=== PATIENT | male | born 2005 | race Caucasian/White ===

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

== ENCOUNTER 2024-07-09 17:04 | Emergency (ER) | payer OTHER, SELFPAY ==
--- OUTSIDE RECORDS SUMMARY | 2024-07-09 17:06 | XMS_ITS | Clinical Summary ---
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 Gender Identity Not on file Sexual Orientation Not on file Obstetrics History Last Filed Vital Signs Vital Sign Reading Time Taken Comments Blood Pressure 120/82 01/08/2024 3:43 PM DIRECTOR OF AGRICULTURE Pulse 90 01/08/2024 3:43 PM DIRECTOR OF AGRICULTURE Temperature 36.8 C (98.3 F) 01/08/2024 3:43 PM DIRECTOR OF AGRICULTURE Respiratory Rate 20 01/08/2024 3:43 PM DIRECTOR OF AGRICULTURE Oxygen Saturation 99% 01/08/2024 3:43 PM DIRECTOR OF AGRICULTURE Inhaled Oxygen Concentration - - Weight 103.9 kg (229 lb) 01/08/2024 3:43 PM DIRECTOR OF AGRICULTURE Height - - Body Mass Index - - Plan of Treatment Health Maintenance Due Date Last Done Comments Depression Screening 2004 Hepatitis C Screening 2004 DTaP/Tdap/Td Vaccine (1 - Tdap) 2015 Varicella Vaccines (1 of 2 - 13+ 2-dose series) 2017 HPV Vaccines (1 - Male 3-dos e series) 2019 Meningococcal B Vaccine (1 o f 2 - Standard) 2020 Hepatitis B Screening 2022 Regular Well Visit/Exam 18-64 2022 Influenza Vaccine (#1) 2023 Meningococcal Vaccine Aged Out No claduine margarita eligible based on patient's age to complete this topic Pneumococcal vaccine <65 Aged Out No longer eligible based on patient's age to complete this topic Insurance HAROON Hassan [id number] [facility] CHOICE PLUS HAROON Hassan [id number] Care Teams Sea Shell Gatherer Relationship Specialty Start Date End Date Unknown, Notinfile PCP - General 01/08/24
--- OUTSIDE RECORDS SUMMARY | 2024-07-09 17:06 | XMS_ITS | Continuity of Care Document ---
Author Organization [facility] Address [address] [place] [address] [address] [place] [address] Phone Care Team Providers Care Opinion Polls Survey Worker Name Role Phone Denton OD, Tommy Unavailable Unavailable Procedures Procedure Date Eye Exam & Treatment Refraction Advance Directives Directive Yes / No Effective Date File Name No Information Encounters Encounter Description Practice Location Reason(s) For Visit Diagnoses Date Provider Providers Copied on Encounter [facility], [address], [place], [place], [id number], [place] tel:[phone] [facility] [place] No Information [phone] Denton OD Tommy. [address] , [address], [place], [address], [place]. tel:[phone] Family History Family Member Type Diagnosis Age At Onset No Information Payers Payer name Insurance type Covered constitution party ID Authoriza tion(s) Medicaid [facility] [id number] Social History Type Description Quantity Date Captured Comments Sex Male Smoking Status No Information Chief Complaint And Reason For Visit No Information Reason For Referral Reason For Referral No Information History Of Present Illness Encounter Date Complaint History Of Prese nt Illness No Information Functional Status Date Functional Assessmen t No Information Instructions Date Instruction Additional Infor mation No Information Assessments Type Assessment Date No Information Patient Care Teams Name Effective Dates (start - stop) Status Members No Information
--- OUTSIDE RECORDS SUMMARY | 2024-07-09 17:06 | XMS_ITS | Referral Summary ---
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 Gender Identity Not on file Sexual Orientation Not on file Last Filed Vital Signs Vital Sign Reading Time Taken Comments Blood Pressure 120/82 01/08/2024 3:43 PM VEHICLE UPHOLSTERER Pulse 90 01/08/2024 3:43 PM VEHICLE UPHOLSTERER Temperature 36.8 C (98.3 F) 01/08/2024 3:43 PM VEHICLE UPHOLSTERER Respiratory Rate 20 01/08/2024 3:43 PM VEHICLE UPHOLSTERER Oxygen Saturation 99% 01/08/2024 3:43 PM VEHICLE UPHOLSTERER Inhaled Oxygen Concentration - - Weight 103.9 kg (229 lb) 01/08/2024 3:43 PM VEHICLE UPHOLSTERER Height - - Body Mass Index - - Plan of Treatment [place] [id number] [facility] CHOICE PLUS Care Teams Stop Attacher Relationship Specialty Start Date End Date Unknown, Notinfile PCP - General 01/08/24
[2024-07-09 17:15] VITALS: BP 161/86; PULSE 96; RESP 16; TEMP 37.3; O2SAT 98
--- NOTE | 2024-07-09 18:36 | ED_ITS ---
HPI - Epistaxis General Chief complaint: Epistaxis Stated complaint: nosebleed x 20 mins Time Seen by Provider: 07/09/24 18:36 Focused HPI: Patient is a 19 y/o male who presents to the ED with c/o epistaxis. Patient reports he has had a persistent nosebleed for the past 2 hours. Mostly present throughout his left nose, but does feel his right nostril has been involved as well. He feels blood running down the back of his throat. He states he did blow his nose forcibly today at work just prior to when the nosebleed began. Has had more mild nosebleeds over the past couple of days. Reports feeling somewhat nauseous, lightheaded. GENERAL: Well-appearing, obese with BMI of 36.1, and in no acute distress. HEAD: Normocephalic, atraumatic. ENT: Persistent oozing dark red blood from L nare vestibule. No obvious localized vessel. Some blood draining down posterior pharynx. CHEST: No respiratory distress. HEART: Regular rate and rhythm.? NEURO: ?Alert and oriented x3. Patient screened in triage and initial orders placed.? ?Additional care and disposition to be based upon?diagnostic testing and treatment. Source: patient Mode of arrival: ambulatory Limitations: no limitations Related Data Allergies Allergy/AdvReac Type Severity Reaction Status Date / Time No Known Allergies Allergy Unverified 07/09/24 19:53 Course Vital Signs Vital signs: Vital Signs Temperature 99.2 F 07/09/24 17:15 Pulse Rate 96 07/09/24 17:15 Respiratory Rate 16 07/09/24 17:15 Blood Pressure 161/86 H 07/09/24 17:15 Pulse Oximetry 98 07/09/24 17:15 Oxygen Delivery Room Air 07/09/24 17:15 Temperature 99.2 F 07/09/24 17:15 Pulse Rate 96 07/09/24 17:15 Respiratory Rate 16 07/09/24 17:15 Blood Pressure 161/86 H 07/09/24 17:15 Pulse Oximetry 98 07/09/24 17:15 Oxygen Delivery Room Air 07/09/24 17:15 MDM - Epistaxis MDM Narrative Medical decision making narrative: MSE by KENYETTA in triage. Lab Data 07/09/24 20:18 07/09/24 20:18 Labs: Lab Results 05/21/25 Range/Units 20:18 WBC 13.0 H (4.5-10.0) K/mm3 RBC 6.02 (4.6-6.20) M/mm3 Hgb 18.4 H (14.0-18.0) g/dL Hct 52.3 H (42.0-52.0) % MCV 86.9 (80-100) fl MCH 30.6 (26-34) pg MCHC 35.2 (32-36) g/dl RDW 12.1 (11.5-14.5) % Plt Count 384 H (150-375) k/mm3 MPV 9.4 (7.4-10.4) fl Immature Gran % (Auto) 0.6 H (0-0.5) % Neut % (Auto) 65.0 (45.5-73.1) % Lymph % (Auto) 23.3 (18.3-44.2) % [place] % (Auto) 8.2 (2.6-8.5) % Eos % (Auto) 2.5 (0-4.4) % Baso % (Auto) 0.4 (0.2-1.2) % Lymph # (Auto) 3.02 (0.9-3.2) K/mm3 [place] # (Auto) 1.1 H (0.1-0.6) K/mm3 Eos # (Auto) 0.3 (0-0.3) K/mm3 Baso # (Auto) 0.1 (0.0-0.1) K/mm3 Abs Immat Gran (auto) 0.08 H (0.00-0.031) K/mm3 Absolute Neuts (auto) 8.4 H (1.3-6.7) K/mm3 Absolute Nucleated RBC 0.000 (0.0-0.012) K/mm3 Nucleated RBC % 0.0 (0.0-0.2) % PT 13.9 (11.1-14.7) Seconds INR 1.0 APTT 28.5 (22.3-36.8) Seconds Sodium 139 (137-145) mmol/L Potassium 3.9 (3.4-5.0) mmol/L Chloride 105 (98-107) mmol/L Carbon Dioxide 20 L (22-30) mmol/L Anion Gap 14 H (4-12) mmol/L BUN 15 (9-20) mg/dL Creatinine 0.80 (0.7-1.3) mg/dL Estim Creat Clear Calc 148 ml/min Estimated GFR > 60 (59 - ) Glucose 86 (65-110) mg/dL Calcium 9.7 (8.4-10.2) mg/dL Discharge Plan Discharge Clinical Impression: Epistaxis Patient Disposition: Home Condition: Improved Instructions: Nosebleed (ED) Additional Instructions: RETURN IF SYMPTOMS ARE WORSENING , CALL ENT TOMORROW FOR APPOINTMENT, TAKE TYLENOL NEEDED FOR ACHES AND PAIN, CONTINUE HOME MEDICATIONS. REMOVE NASAL PACK IN 3-5 DAYS Patient Language: Cape Verdean Prescriptions: New amoxicillin-pot clavulanate [Augmentin] 500-125 mg tablet 1 tablet PO Q8H Qty: 15 0RF Follow-up/Referrals: Simone East MD [Physician] - 07/11/24 PHYSICIAN,PROCESS CHECKER [Primary Care Provider] - Stand Alone Forms: Work/School Release IP
[2024-07-09] MEDS: OXYMETAZOLINE HCL 0.05% NAS 15 ML BTL (*BKC) 1 SPRAY NASAL (19:35)
--- NOTE | 2024-07-09 19:41 | ED.EPISTAXIS ---
HPI - Epistaxis General Chief complaint: Epistaxis Stated complaint: nosebleed x 20 mins Time Seen by Provider: 07/09/24 18:36 Source: patient and family Mode of arrival: ambulatory Limitations: no limitations and clinical condition History of Present Illness HPI Narrative: 19 YEARS OLD WHITE MALE CAME TO THE ED WITH LEFT NASAL BLEED STARTED YESTERDAY, TWICE, FEW MINUTES EACH TIME. TODAY HAD ANOTHER 2 OF NOSE BLEED LONGER THAN YESTERDAY. PATIENT IS TELLING ME THAT HE HAVE COLD SYMPTOMS/SEASONAL ALLERGY IN THE LAST 11 DAYS AND BEEN USING [id number] COLD MEDICINE INCLUDING DAYQUIL. PATIENT BEEN SNEEZING HARD THE LAST 2 DAYS. THE BLEEDING TODAY STARTED IMMEDIATELY AFTER STRONG SNEEZE. Related Data Allergies Allergy/AdvReac Type Severity Reaction Status Date / Time No Known Allergies Allergy Unverified 07/09/24 19:53 Review of Systems Review of Systems: All systems reviewed & are unremarkable except as noted in HPI and below Exam Narrative: GENERAL APPEARANCE: WELL-DEVELOPED, WELL-NOURISHED SKIN: NORMAL COLOR HEAD: NORMOCEPHALIC, NONTRAUMATIC EYES: CLEAR CONJUNCTIVA ENT: OROPHARYNX NORMAL, EARS NORMAL, NASAL EXAM SHOWED MOIST BLOOD IN THE LEFT NOSTRIL, NO ACTIVE BLEEDING AT THIS TIME. NECK: SUPPLE, NONTENDER CHEST AND RESPIRATORY: AIRWAY PATENT, NO RESPIRATORY DISTRESS, NO ACCESSORY MUSCLE USE HEART: REGULAR RATE/RHYTHM NEUROLOGIC: ALERT AND ORIENTED ?3, Course Consultations Consultation #1: DR SHIRLEY Date: 07/09/24 Vital Signs Vital signs: Vital Signs Temperature 37.3 C 07/09/24 17:15 Pulse Rate 96 07/09/24 17:15 Respiratory Rate 16 07/09/24 17:15 Blood Pressure 161/86 H 07/09/24 17:15 Pulse Oximetry 98 07/09/24 17:15 Oxygen Delivery Room Air 07/09/24 17:15 Temperature 37.3 C 07/09/24 17:15 Pulse Rate 96 07/09/24 17:15 Respiratory Rate 16 07/09/24 17:15 Blood Pressure 161/86 H 07/09/24 17:15 Pulse Oximetry 98 07/09/24 17:15 Oxygen Delivery Room Air 07/09/24 17:15 Procedures Epistaxis Control left: Epistaxis Control Date: 07/09/24 Epistaxis Control Time: 21:35 Time Out Performed: Yes (5) Direct Inspection: yes and unable to visualize Device Inserted: hemostatic balloon Patient Tolerated Procedure: well Epistaxis Control Narrative: PATIENT WAS OBSERVED IN THE ED FOR 45 MINUTES WITHOUT ANY ACTIVE BLEEDING. MDM - Epistaxis MDM Narrative Medical decision making narrative: PATIENT PRESENTS WITH LEFT NOSTRIL BLEED, VITAL SIGNS SHOWING BLOOD PRESSURE 161/86 PATIENT IS ANXIOUS AND PANICKY PHYSICAL EXAMINATION SHOWING MOIST BLOOD LEFT NOSTRIL, NO ACTIVE BLEEDING. DIFFERENTIAL DIAGNOSIS SEASONAL ALLERGY RELATED, UPPER RESPIRATORY VIRAL INFECTION RELATED, SNEEZING RELATED. THROMBOCYTOPENIA, ERYTHROCYTOSIS, COAGULATION DISORDER. BLOOD WORKUP TODAY INCLUDES CBC, CMP, AND COAGS SHOWED WBC 13.0, HEMOGLOBIN 18.4, HEMATOCRIT 52.3 PATIENT IS A SMOKER. PLATELET 384, NORMAL PT AND PTT PATIENT NOSE BLEED WAS COMPLETELY STOPPED FOR 1 HOUR DURING EMERGENCY ROOM VISIT. PATIENT DECLINED NASAL PACKING AND WOULD LIKE TO TRY HOME REMEDY. DIAGNOSIS EPISTAXIS DISCHARGED HOME ON SALINE NASAL SPRAY, KENN-SYNEPHRINE NEEDED AT THE TIME OF DISCHARGE PATIENT STOOD UP AND READY TO GO STARTED BLEEDING AGAIN. PATIENT AGREED WITH THE NASAL PACKING. 7.5 RHINO ROCKET PLACED ON THE LEFT NOSTRIL, PATIENT WAS OBSERVED FOR 45 MINUTES PRIOR TO DISCHARGE, NO ACTIVE BLEEDING. WAS ADVISED TO CALL ENT FOR RHINO ROCKET REMOVAL IN 3-5 DAYS. THE PT WAS DISCHARGED TO HOME.THE PT,S CONDITION UPON DISCHARGE WAS FAIR,EDUCATION WAS PROVIDED TO THE PT IN REFERENCE TO THE FINAL IMPRESSION,DISCHARGE STUDY RESULTS,TREATMENT,PROGNOSIS AND NEED FOR FOLLOW UP . Differential Diagnosis Differential diagnosis: Likely anterior epistaxis Medical Records Attestation: I reviewed the patient's medical records. Lab Data Attestation: I reviewed the patient's lab results. 07/09/24 20:18 07/09/24 20:18 Labs: Lab Results 07/09/24 Range/Units 20:18 WBC 13.0 H (4.5-10.0) K/mm3 RBC 6.02 (4.6-6.20) M/mm3 Hgb 18.4 H (14.0-18.0) g/dL Hct 52.3 H (42.0-52.0) % MCV 86.9 (80-100) fl MCH 30.6 (26-34) pg MCHC 35.2 (32-36) g/dl RDW 12.1 (11.5-14.5) % Plt Count 384 H (150-375) k/mm3 MPV 9.4 (7.4-10.4) fl Immature Gran % (Auto) 0.6 H (0-0.5) % Neut % (Auto) 65.0 (45.5-73.1) % Lymph % (Auto) 23.3 (18.3-44.2) % [place] % (Auto) 8.2 (2.6-8.5) % Eos % (Auto) 2.5 (0-4.4) % Baso % (Auto) 0.4 (0.2-1.2) % Lymph # (Auto) 3.02 (0.9-3.2) K/mm3 [place] # (Auto) 1.1 H (0.1-0.6) K/mm3 Eos # (Auto) 0.3 (0-0.3) K/mm3 Baso # (Auto) 0.1 (0.0-0.1) K/mm3 Abs Immat Gran (auto) 0.08 H (0.00-0.031) K/mm3 Absolute Neuts (auto) 8.4 H (1.3-6.7) K/mm3 Absolute Nucleated RBC 0.000 (0.0-0.012) K/mm3 Nucleated RBC % 0.0 (0.0-0.2) % PT 13.9 (11.1-14.7) Seconds INR 1.0 APTT 28.5 (22.3-36.8) Seconds Sodium 139 (137-145) mmol/L Potassium 3.9 (3.4-5.0) mmol/L Chloride 105 (98-107) mmol/L Carbon Dioxide 20 L (22-30) mmol/L Anion Gap 14 H (4-12) mmol/L BUN 15 (9-20) mg/dL Creatinine 0.80 (0.7-1.3) mg/dL Estim Creat Clear Calc 148 ml/min Estimated GFR > 60 (59 - ) Glucose 86 (65-110) mg/dL Calcium 9.7 (8.4-10.2) mg/dL Critical Care Time Critical Care Time Critical Care Time: No Discharge Plan Discharge Clinical Impression: Epistaxis Patient Disposition: Home Condition: Improved Instructions: Nosebleed (ED) Additional Instructions: RETURN IF SYMPTOMS ARE WORSENING , CALL ENT TOMORROW FOR APPOINTMENT, TAKE TYLENOL NEEDED FOR ACHES AND PAIN, CONTINUE HOME MEDICATIONS. REMOVE NASAL PACK IN 3-5 DAYS Patient Language: Fijian Follow-up/Referrals: PHYSICIAN,BATCH MIXER [Primary Care Provider] - Simone East MD [Physician] - 07/11/24
--- OUTSIDE RECORDS SUMMARY | 2024-07-09 20:09 | XMS_ITS | Continuity of Care Document ---
Author Organization [facility] Address [address] [place] [address] [address] [place] [address] Phone Care Team Providers Care Procedure Tech Name Role Phone Denton OD, Tommy Unavailable Unavailable Procedures Procedure Date Eye Exam & Treatment Refraction Advance Directives Directive Yes / No Effective Date File Name No Information Encounters Encounter Description Practice Location Reason(s) For Visit Diagnoses Date Provider Providers Copied on Encounter [facility], [address], [place], [place], [id number], [place] tel:[phone] [facility] [place] No Information 6-201 0 Denton OD Tommy. [address] , [address], [place], [address], [place]. tel:[phone] Family History Family Member Type Diagnosis Age At Onset No Information Payers Payer name Insurance type Covered libertarian ID Authoriza tion(s) Medicaid REPLACED BY [facility] [id number] Social History Type Description Quantity Date Captured [...]
--- OUTSIDE RECORDS SUMMARY | 2024-07-09 20:09 | XMS_ITS | Clinical Summary ---
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 Gender Identity Not on file Sexual Orientation Not on file Obstetrics History Last Filed Vital Signs Vital Sign Reading Time Taken Comments Blood Pressure 120/82 01/08/2024 3:43 PM HEARSE DRIVER Pulse 90 01/08/2024 3:43 PM HEARSE DRIVER Temperature 36.8 C (98.3 F) 01/08/2024 3:43 PM HEARSE DRIVER Respiratory Rate 20 01/08/2024 3:43 PM HEARSE DRIVER Oxygen Saturation 99% 01/08/2024 3:43 PM HEARSE DRIVER Inhaled Oxygen Concentration - - Weight 103.9 kg (229 lb) 01/08/2024 3:43 PM HEARSE DRIVER Height - - Body Mass Index - [...] (#1) 2023 Meningococcal Vaccine Aged Out No claudine margarita eligible based on patient's age to complete this topic Pneumococcal vaccine <65 Aged Out No longer eligible based on patient's age to complete this topic Insurance HAROON Hassan [id number] [facility] CHOICE PLUS HAROON Hassan [id number] Care Teams Felting Machine Operator Relationship Specialty Start Date End Date Unknown, Notinfile PCP - General 01/08/24
--- OUTSIDE RECORDS SUMMARY | 2024-07-09 20:09 | XMS_ITS | Referral Summary ---
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 Gender Identity Not on file Sexual Orientation Not on file Last Filed Vital Signs Vital Sign Reading Time Taken Comments Blood Pressure 120/82 01/08/2024 3:43 PM KISS MACHINE OPERATOR Pulse 90 01/08/2024 3:43 PM KISS MACHINE OPERATOR Temperature 36.8 C (98.3 F) 01/08/2024 3:43 PM KISS MACHINE OPERATOR Respiratory Rate 20 01/08/2024 3:43 PM KISS MACHINE OPERATOR Oxygen Saturation 99% 01/08/2024 3:43 PM KISS MACHINE OPERATOR Inhaled Oxygen Concentration - - Weight 103.9 kg (229 lb) 01/08/2024 3:43 PM KISS MACHINE OPERATOR Height - - Body Mass Index - - Plan of Treatment [place] [id number] [facility] CHOICE PLUS Care Teams Steel Crane Operator Relationship Specialty Start Date End Date Unknown, Notinfile PCP - General 01/08/24
[2024-07-09 20:25] LABS: Basophils Absolute Auto 0.1 K/mm3 (0.0-0.1); Basophils Percent Auto 0.4 % (0.2-1.2); Eosinophils Absolute Auto 0.3 K/mm3 (0-0.3); Eosinophils Percent Auto 2.5 % (0-4.4); Hematocrit 52.3 % (42.0-52.0); Hemoglobin 18.4 g/dL (14.0-18.0); Immature Granulocyte Absolute 0.08 K/mm3 (0.00-0.031); Immature Granulocyte Percent A 0.6 % (0-0.5); Lymphocytes Absolute Auto 3.02 K/mm3 (0.9-3.2); Lymphocytes Percent Auto 23.3 % (18.3-44.2); Mean Corpuscular HGB Conc 35.2 g/dl (32-36); Mean Corpuscular Hemoglobin 30.6 pg (26-34); Mean Corpuscular Volume 86.9 fl (80-100); Mean Platelet Volume 9.4 fl (7.4-10.4); Monocytes Absolute Auto 1.1 K/mm3 (0.1-0.6); Monocytes Percent Auto 8.2 % (2.6-8.5); Neutrophils Absolute Auto 8.4 K/mm3 (1.3-6.7); Platelet Count Result 384 k/mm3 (150-375); Red Blood Count 6.02 M/mm3 (4.6-6.20); Red Cell Distribution Width 12.1 % (11.5-14.5)
[2024-07-09 20:37] LABS: Anion Gap 14 mmol/L (4-12); Blood Urea Nitrogen 15 mg/dL (9-20); Calcium 9.7 mg/dL (8.4-10.2); Carbon Dioxide 20 mmol/L (22-30); Chloride 105 mmol/L (98-107); Estimated CRCL calculation 148 ml/min; Estimated Glomerular Filt Rate > 60; Glucose 86 mg/dL (65-110); Potassium 3.9 mmol/L (3.4-5.0); Sodium 139 mmol/L (137-145)
--- NOTE | 2024-07-09 20:37 | PC.NURSE ---
Nasal clamp previously removed. No active bleeding. Pt. denies any current pain. A&Ox4.
[2024-07-09 20:40] LABS: Partial Thromboplastin Time 28.5 Seconds (22.3-36.8); Prothrombin Time 13.9 Seconds (11.1-14.7)
== END 2024-07-09 22:05 | disposition home or self-care (01) ==
PROVIDERS: Emergency Provider Emergency Medicine
DX: R04.0 Epistaxis (principal)
CPT/HCPCS: 30901; 36415; 80048; 85025; 85610; 85730; 99283; A9270

== ENCOUNTER 2024-07-11 02:57 | Emergency (ER) | payer OTHER, SELFPAY ==
[2024-07-11 02:58] VITALS: BP 141/91; PULSE 86; RESP 15; TEMP 36.8; O2SAT 100
--- OUTSIDE RECORDS SUMMARY | 2024-07-11 02:59 | XMS_ITS | Continuity of Care Document ---
Author Organization [facility] Address [address] [place] [address] [address] [place] [address] Phone Care Team Providers Care Photo Producer Name Role Phone Denton OD, Tommy Unavailable Unavailable Procedures Procedure Date Eye Exam & Treatment Refraction Advance Directives Directive Yes / No Effective Date File Name No Information Encounters Encounter Description Practice Location Reason(s) For Visit Diagnoses Date Provider Providers Copied on Encounter [facility], [address], [place], [place], [id number], [place] tel:[phone] [facility] [place] No Information 6-201 0 Denton OD Tommy. [address] , [address], [place], [address], [place]. tel:[phone] Family History Family Member Type Diagnosis Age At Onset No Information Payers Payer name Insurance type Covered republican ID Authoriza tion(s) Medicaid [facility] [id number] Social History Type Description Quantity Date Captured [...]
--- OUTSIDE RECORDS SUMMARY | 2024-07-11 02:59 | XMS_ITS | Clinical Summary ---
Author Organization [address] Address [address] [place] [phone] Care Team Providers Care Burrer Operator Name Role Phone Unknown, Notinfile Primary Care Provider Unavail able Allergies No known active allergies Medications No known medications Active Problems No known active problems Social History Tobacco Use Types Packs/Day Years Used Date Smoking Tobacco: Never Assessed Sex and Gender Information Value Date Recorded Sex Assigned at Not on file Legal Sex Male 12:43 AM HAND TACKER Gender Identity Not on file Sexual Orientation Not on file Obstetrics History Last Filed Vital Signs Vital Sign Reading Time Taken Comments Blood Pressure 120/82 01/08/2024 3:43 PM HAND TACKER Pulse 90 01/08/2024 3:43 PM HAND TACKER Temperature 36.8 C (98.3 F) 01/08/2024 3:43 PM HAND TACKER Respiratory Rate 20 01/08/2024 3:43 PM HAND TACKER Oxygen Saturation 99% 01/08/2024 3:43 PM HAND TACKER Inhaled Oxygen Concentration - - Weight 103.9 kg (229 lb) 01/08/2024 3:43 PM HAND TACKER Height - - Body Mass Index - [...] Regular Well Visit/Exam 18-64 2022 Influenza Vaccine (Season Ended) 2024 Meningococcal Vaccine Aged Out No claudine margarita eligible based on patient's age to complete this topic Pneumococcal vaccine <65 Aged Out No longer eligible based on patient's age to complete this topic Insurance HAROON Hassan [id number] [facility] CHOICE PLUS [facility] HMO/PPO Address: [facility] [address] [place] [address] HAROON Hassan [id number] Care Teams Burrer Operator Relationship Specialty Start Date End Date Unknown, Notinfile PCP - General 01/08/24
--- OUTSIDE RECORDS SUMMARY | 2024-07-11 02:59 | XMS_ITS | Referral Summary ---
Author Organization [address] Address [address] [place] [id number] Care Team Providers Care County Agricultural Agent Name Role Phone Unknown, Notinfile Primary Care Provider Unavail able Allergies No known active allergies Medications No known medications Active Problems No known active problems Social History Tobacco Use Types Packs/Day Years Used Date Smoking Tobacco: Never Assessed Sex and Gender Information Value Date Recorded Sex Assigned at Not on file Legal Sex Male 12:43 AM PATIENT SAFETY SITTER Gender Identity Not on file Sexual Orientation Not on file Last Filed Vital Signs Vital Sign Reading Time Taken Comments Blood Pressure 120/82 01/08/2024 3:43 PM PATIENT SAFETY SITTER Pulse 90 01/08/2024 3:43 PM PATIENT SAFETY SITTER Temperature 36.8 C (98.3 F) 01/08/2024 3:43 PM PATIENT SAFETY SITTER Respiratory Rate 20 01/08/2024 3:43 PM PATIENT SAFETY SITTER Oxygen Saturation 99% 01/08/2024 3:43 PM PATIENT SAFETY SITTER Inhaled Oxygen Concentration - - Weight 103.9 kg (229 lb) 01/08/2024 3:43 PM PATIENT SAFETY SITTER Height - - Body Mass Index - - Plan of Treatment [place] [id number] [facility] CHOICE PLUS Care Teams County Agricultural Agent Relationship Specialty Start Date End Date Unknown, Notinfile PCP - General 01/08/24
--- NOTE | 2024-07-11 03:18 | ED_ITS ---
HPI - Epistaxis General Chief complaint: Epistaxis Stated complaint: nosebleed Time Seen by Provider: 07/11/24 03:17 Source: patient and other Mode of arrival: ambulatory Limitations: no limitations History of Present Illness HPI Narrative: Patient presents with epistaxis and coughing up blood. Patient presented with epistaxis and a rhino rocket was placed on 07/09/2024. He followed up with Dr. East, cement block maker on 07/10 because of bleeding. Yesterday bleeding had primarily been from left naris, today both. Trying Afrin, not working. Also having throat pain, headache and dizziness. Patient states when he had an episode of epistaxis at 7:00 p.m. he is Afrin and clamped his nose with his fingers and then applied mupirocin. This occurred again at 10:00 p.m. lasted for 50 minutes for which he used Afrin. Happened again at midnight, coughing quarter-sized clots. Related Data Allergies Allergy/AdvReac Type Severity Reaction Status Date / Time No Known Allergies Allergy Unverified 07/11/24 14:21 [facility] Family History Family History Mother Thyroid disorder Depression Anxiety Grandparent Lung cancer COPD (chronic obstructive pulmonary disease) Social History Social History Social History: Caffeine-occasionally Years smoked: 4 Smoking status: Never smoker Alcohol intake: current Alcohol use details: rarely Substance use: current Substance use type: marijuana Exam 2 Narrative: GENERAL: Well-appearing, well-nourished, and in no acute distress. HEAD: Normocephalic, atraumatic. EYES: Non injected, non icteric ENT: Dried blood in anterior part of nares. Friable mucosa in left naris but no active bleeding. Gross auditory acuity intact. Posterior oropharynx and tongue without blood. NECK: Supple. No meningismus. CHEST: Speaking in full sentences. No respiratory distress. HEART: Regular rate and rhythm. . ABDOMEN: Soft, nondistended. No rigidity or guarding. Not peritoneal EXTREMITIES: Normal range of motion. No lower extremity edema. SKIN: Warm, dry, no rash. NEURO: No focal deficits. Alert and oriented. Answering questions. Following commands. Normal speech without aphasia or dysarthria. PSYCH: Normal mood and affect. Course Vital Signs Vital signs: Vital Signs Temperature 98.2 F 07/11/24 02:58 Pulse Rate 86 07/11/24 02:58 Respiratory Rate 15 07/11/24 02:58 Blood Pressure 141/91 H 07/11/24 02:58 Pulse Oximetry 100 07/11/24 02:58 Oxygen Delivery Room Air 07/11/24 02:58 Temperature 98 F 07/11/24 04:50 Pulse Rate 86 07/11/24 04:50 Respiratory Rate 16 07/11/24 04:50 Blood Pressure 139/81 07/11/24 04:50 Pulse Oximetry 99 07/11/24 04:50 Oxygen Delivery Room Air 07/11/24 02:58 MDM - Epistaxis MDM Narrative Medical decision making narrative: Patient presents with epistaxis. He has had epistaxis throughout the week requiring placement of rhino rocket on 07/09 and follow-up with cement block maker Dr East the afternoon of 07/10/24. In the emergency department he is afebrile with vital signs notable for mild hypertension. Chemistry/renal function normal. Mild leukocytosis but notably patient is not anemic. Nasal Clamp has been removed for over an hour at the time of reassessment. Afrin had been available at bedside but had not been used in patient had not had any recurrence of bleeding. For the persistent nausea, he is given IV Zofran. We did discuss the need to follow-up with Dr. East in the morning because there has been recurrence of bleeding. We also discussed that blood is a GI tract irritant and the importance of clamping nose and leaning forward to minimize swallowing blood. He does state that he has already noticed looser/darker stools as a result of the blood he has already swallowed. Differential Diagnosis Differential diagnosis: Likely anterior epistaxis and posterior epistaxis Medical Records Attestation: I reviewed the patient's medical records. Medical records narrative: ENT outpatient note Dr East 07/10: mupirocin upfront several times per day nasal saline spray if he bleeds Afrin on a cotton ball pinch tightly a mural day tomorrow if he bleeds again I want see him back in to see there is any stigmata of recent bleed. We can in reflexively cauterize the anterior telangiectatic vessel. If he bleeds again after that we should consider left SP a cautery ligation. Lab Data Attestation: I reviewed the patient's lab results. 07/11/24 03:38 07/11/24 03:38 Labs: Lab Results 07/11/24 Range/Units 03:38 WBC 12.8 H (4.5-10.0) K/mm3 RBC 5.74 (4.6-6.20) M/mm3 Hgb 17.5 (14.0-18.0) g/dL Hct 50.2 (42.0-52.0) % MCV 87.5 (80-100) fl MCH 30.5 (26-34) pg MCHC 34.9 (32-36) g/dl RDW 12.2 (11.5-14.5) % Plt Count 358 (150-375) k/mm3 MPV 9.5 (7.4-10.4) fl Immature Gran % (Auto) 0.6 H (0-0.5) % Neut % (Auto) 61.5 (45.5-73.1) % Lymph % (Auto) 24.5 (18.3-44.2) % Crockett % (Auto) 11.8 H (2.6-8.5) % Eos % (Auto) 1.3 (0-4.4) % Baso % (Auto) 0.3 (0.2-1.2) % Lymph # (Auto) 3.13 (0.9-3.2) K/mm3 Crockett # (Auto) 1.5 H (0.1-0.6) K/mm3 Eos # (Auto) 0.2 (0-0.3) K/mm3 Baso # (Auto) 0.0 (0.0-0.1) K/mm3 Abs Immat Gran (auto) 0.08 H (0.00-0.031) K/mm3 Absolute Neuts (auto) 7.8 H (1.3-6.7) K/mm3 Absolute Nucleated RBC 0.000 (0.0-0.012) K/mm3 Nucleated RBC % 0.0 (0.0-0.2) % PT 13.7 (11.1-14.7) Seconds INR 1.0 APTT 29.6 (22.3-36.8) Seconds Sodium 140 (137-145) mmol/L Potassium 3.9 (3.4-5.0) mmol/L Chloride 104 (98-107) mmol/L Carbon Dioxide 24 (22-30) mmol/L Anion Gap 12 (4-12) mmol/L BUN 15 (9-20) mg/dL Creatinine 0.81 (0.7-1.3) mg/dL Estim Creat Clear Calc 150 ml/min Estimated GFR > 60 (59 - ) Glucose 107 (65-110) mg/dL Calcium 9.5 (8.4-10.2) mg/dL Discharge Plan Discharge Clinical Impression: Epistaxis Patient Disposition: Home Condition: Stable Instructions: Antibiotic Form, Nosebleed (ED) Additional Instructions: You can use the prescribed tablets of oral disintegrating Zofran/ondansetron for persistent nausea. Follow-up with the cement block maker/ENT doctor. Continue taking other medications as prescribed. Return to the emergency department with any new, worsening, recurrence of symptoms. Patient Language: Vietnamese Prescriptions: New ondansetron 4 mg tablet,disintegrating 4 mg PO Q8H PRN (Reason: nausea and vomiting) Qty: 7 0RF No Action mupirocin [Centany] 2 % ointment 1 applic topical QID Qty: 22 3RF Rx Instructions: intranasal amoxicillin-pot clavulanate [Augmentin] 500-125 mg tablet 1 tablet PO Q8H Qty: 15 0RF Follow-up/Referrals: Simone East MD [Physician] - UNKNOWN,DOCTOR [Primary Care Provider] - Stand Alone Forms: Work/School Release IP Time of Disposition: 04:37
[2024-07-11 03:39] VITALS: BP 138/103; PULSE 93; RESP 17; O2SAT 98
--- OUTSIDE RECORDS SUMMARY | 2024-07-11 03:42 | XMS_ITS | Continuity of Care Document ---
Author Organization [facility] Address [address] [place] [address] [address] [place] [address] Phone Care Team Providers Care Deck Mechanic Name Role Phone Denton OD, Tommy Unavailable Unavailable Procedures Procedure Date Eye Exam & Treatment Refraction Advance Directives Directive Yes / No Effective Date File Name No Information Encounters Encounter Description Practice Location Reason(s) For Visit Diagnoses Date Provider Providers Copied on Encounter [facility], [address] [place], [place], [id number], [place] tel:[phone] [facility] No Information [phone] Denton OD Tommy. [address] , [address], [place], [address], [place]. tel:[phone] Family History Family Member Type Diagnosis Age At Onset No Information Payers Payer name Insurance type Covered green party ID Authoriza tion(s) Medicaid [facility] [id number] Social History Type Description Quantity Date Captured [...]
--- OUTSIDE RECORDS SUMMARY | 2024-07-11 03:42 | XMS_ITS | Clinical Summary ---
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 OFFICER Gender Identity Not on file Sexual Orientation Not on file Obstetrics History Last Filed Vital Signs Vital Sign Reading Time Taken Comments Blood Pressure 120/82 01/08/2024 3:43 PM PUBLIC AFFAIRS OFFICER Pulse 90 01/08/2024 3:43 PM PUBLIC AFFAIRS OFFICER Temperature 36.8 C (98.3 F) 01/08/2024 3:43 PM PUBLIC AFFAIRS OFFICER Respiratory Rate 20 01/08/2024 3:43 PM PUBLIC AFFAIRS OFFICER Oxygen Saturation 99% 01/08/2024 3:43 PM PUBLIC AFFAIRS OFFICER Inhaled Oxygen Concentration - - Weight 103.9 kg (229 lb) 01/08/2024 3:43 PM PUBLIC AFFAIRS OFFICER Height - - Body Mass Index - [...] to complete this topic Insurance HAROON Hassan [id number] [facility] CHOICE PLUS HAROON Hassan [id number] Care Teams Wrecking Mechanic Relationship Specialty Start Date End Date Unknown, Notinfile PCP - General 01/08/24
--- OUTSIDE RECORDS SUMMARY | 2024-07-11 03:42 | XMS_ITS | Referral Summary ---
Author Organization [address] Address [address] [place] [phone] Care Team Providers Care Sugar Controller Name Role Phone Unknown, Notinfile Primary Care Provider Unavail able Allergies No known active allergies Medications No known medications Active Problems No known active problems Social History Tobacco Use Types Packs/Day Years Used Date Smoking Tobacco: Never Assessed Sex and Gender Information Value Date Recorded Sex Assigned at Not on file Legal Sex Male 12:43 AM PRINTED CIRCUIT BOARDS CONTACT PRINTER Gender Identity Not on file Sexual Orientation Not on file Last Filed Vital Signs Vital Sign Reading Time Taken Comments Blood Pressure 120/82 01/08/2024 3:43 PM PRINTED CIRCUIT BOARDS CONTACT PRINTER Pulse 90 01/08/2024 3:43 PM PRINTED CIRCUIT BOARDS CONTACT PRINTER Temperature 36.8 C (98.3 F) 01/08/2024 3:43 PM PRINTED CIRCUIT BOARDS CONTACT PRINTER Respiratory Rate 20 01/08/2024 3:43 PM PRINTED CIRCUIT BOARDS CONTACT PRINTER Oxygen Saturation 99% 01/08/2024 3:43 PM PRINTED CIRCUIT BOARDS CONTACT PRINTER Inhaled Oxygen Concentration - - Weight 103.9 kg (229 lb) 01/08/2024 3:43 PM PRINTED CIRCUIT BOARDS CONTACT PRINTER Height - - Body Mass Index - - Plan of Treatment [place] [id number] [facility] CHOICE PLUS Care Teams Sugar Controller Relationship Specialty Start Date End Date Unknown, Notinfile PCP - General 01/08/24
--- NOTE | 2024-07-11 03:45 | PC.NURSE ---
Per hold afrin unless bleeding starts
[2024-07-11 03:53] LABS: Anion Gap 12 mmol/L (4-12); Blood Urea Nitrogen 15 mg/dL (9-20); Calcium 9.5 mg/dL (8.4-10.2); Carbon Dioxide 24 mmol/L (22-30); Chloride 104 mmol/L (98-107); Estimated CRCL calculation 150 ml/min; Estimated Glomerular Filt Rate > 60; Glucose 107 mg/dL (65-110); Potassium 3.9 mmol/L (3.4-5.0); Sodium 140 mmol/L (137-145)
[2024-07-11 03:55] LABS: Basophils Percent Auto 0.3 % (0.2-1.2); Eosinophils Absolute Auto 0.2 K/mm3 (0-0.3); Eosinophils Percent Auto 1.3 % (0-4.4); Hematocrit 50.2 % (42.0-52.0); Hemoglobin 17.5 g/dL (14.0-18.0); Immature Granulocyte Absolute 0.08 K/mm3 (0.00-0.031); Immature Granulocyte Percent A 0.6 % (0-0.5); Lymphocytes Absolute Auto 3.13 K/mm3 (0.9-3.2); Lymphocytes Percent Auto 24.5 % (18.3-44.2); Mean Corpuscular HGB Conc 34.9 g/dl (32-36); Mean Corpuscular Hemoglobin 30.5 pg (26-34); Mean Corpuscular Volume 87.5 fl (80-100); Mean Platelet Volume 9.5 fl (7.4-10.4); Monocytes Absolute Auto 1.5 K/mm3 (0.1-0.6); Monocytes Percent Auto 11.8 % (2.6-8.5); Neutrophils Absolute Auto 7.8 K/mm3 (1.3-6.7); Neutrophils Percent Auto 61.5 % (45.5-73.1); Platelet Count Result 358 k/mm3 (150-375); Red Blood Count 5.74 M/mm3 (4.6-6.20); Red Cell Distribution Width 12.2 % (11.5-14.5); White Blood Count 12.8 K/mm3 (4.5-10.0)
[2024-07-11 03:56] LABS: Partial Thromboplastin Time 29.6 Seconds (22.3-36.8); Prothrombin Time 13.7 Seconds (11.1-14.7)
--- NOTE | 2024-07-11 04:11 | PC.NURSE ---
Per MD Aj, HOLD afrin as first line of defense if nosebleed starts
[2024-07-11] MEDS: ONDANSETRON INJ 4 MG/2 ML VIAL IV PUSH (04:48)
[2024-07-11 04:50] VITALS: BP 139/81; PULSE 86; RESP 16; TEMP 36.6; O2SAT 99
== END 2024-07-11 05:01 | disposition home or self-care (01) ==
PROVIDERS: Emergency Provider Student in an Organized Health Care Education/Training Program
DX: R04.0 Epistaxis (principal)
CPT/HCPCS: 36415; 80048; 85025; 85610; 85730; 96374; 99284; A9270; J2405

== ENCOUNTER 2024-10-31 13:26 | Emergency (ER) | payer OTHER, SELFPAY ==
--- NOTE | ~2024-10-31 | XR_ITS ---
EXAMINATION: XR knee RT min 4V DATE: 10/31/2024 13:53 INDICATION: 4 days of nontraumatic right patellar pain TECHNIQUE: Anteroposterior, sunrise, oblique and crosstable lateral views of the affected knee were obtained COMPARISON: None. FINDINGS: Alignment is normal. No fracture. Joint spaces are normal. No joint effusion. Soft tissues are unremarkable. IMPRESSION: 1. Normal right knee radiographs. Reviewed, dictated and finalized at location A.
[2024-10-31 13:35] VITALS: BP 132/90; PULSE 79; RESP 16; TEMP 36.8; O2SAT 100
--- NOTE | 2024-10-31 14:17 | ED_ITS ---
HPI - Extremity Injury (Lower) General Chief Complaint: Extremity Injury, Lower Stated Complaint: R KNEE INJURY Time Seen by Provider: 10/31/24 14:00 Source: patient and RN notes reviewed Mode of arrival: ambulatory Limitations: no limitations History of Present Illness HPI Narrative: 19-year-old male Presents Express Care complaining of right knee pain. Patient denies any injuries. Patient says the pain is gone the last 4 days. 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 Patient denies any swelling. Patient said he is walking okay but states the pain is worse with certain movements of his knee. Patient's has been taking Tylenol or ibuprofen with relief. Patient has also elevating, wearing a knee brace, and icing his knee with some relief. She reports pain is much better today. Patient denies any numbness, tingling or any other injuries. Patient has denies any significant past medical history. Related Data Allergies Allergy/AdvReac Type Severity Reaction Status Date / Time No Known Allergies Allergy Verified 10/31/24 13:36 Review of Systems Review of Systems: CONSTITUTIONAL: Denies fever, chills, or sweats. EYES: Denies visual changes, redness, or discharge. ENT: Denies rhinorrhea, congestion, sore throat, or otalgia. CARDIOVASCULAR: Denies chest pain, palpitations, or edema. RESPIRATORY: Denies cough or dyspnea. GASTROINTESTINAL: Denies abdominal pain, nausea, vomiting, or diarrhea. GENITOURINARY: Denies dysuria or hematuria. SKIN: Denies rash, wound, or itching. MUSCULOSKELETAL: Denies back pain, joint pain, or myalgia. Positive for right knee pain NEUROLOGIC: Denies headache, numbness, or weakness. PSYCHIATRIC: Denies anxiety or depression. All other systems reviewed are negative, except as documented in HPI. [facility] Family History Family History Mother Thyroid disorder Depression Anxiety Grandparent Lung cancer COPD (chronic obstructive pulmonary disease) Social History Social History Social History: Caffeine-occasionally Years smoked: 4 Smoking status: Never smoker Alcohol intake: current Alcohol use details: rarely Substance use: current Substance use type: marijuana Comments At the time of my signature, I reviewed and agree with the nursing past medical, surgical, social, and family history. There is no relevant family history pertinent to the patient complaint. Exam Narrative: GENERAL: This is a well-nourished, well-developed adult, in no apparent distress. They are non ill-appearing, nontoxic appearing. HEAD: normocephalic, atraumatic. EYES: Sclera clear/white. Vision is grossly intact. Conjunctiva normal. Extraocular movement intact. EARS: External ears normal Hearing grossly intact. NOSE: External nose normal THROAT: Mucous membranes moist NECK: Neck supple CARDIOVASCULAR: Regular rate and rhythm RESPIRATORY: Respiratory rate normal, respiratory effort nonlabored, no respiratory distress NEURO: awake, alert, and oriented to person, place and time. There were no obvious focal neurologic abnormalities. EXTREMITIES: Right knee: No obvious deformity, injury, swelling, bruising, redness. Normal range of motion. Pain elicited through flexion and knee extens ion. No bony tenderness. No palpable cord. Capillary refill less than 3 seconds. Right popliteal Pulse 2 +palpable. Normal sensation. Neurovascular status intact distal injury. No valgus or varus laxity. BACK: Nontender without deformity. Course Course Emergency Course: Portions of this record may have been created with voice recognition software Level of Care: Express Care Visit Vital Signs Vital signs: Vital Signs Temperature 98.2 F 10/31/24 13:35 Pulse Rate 79 10/31/24 13:35 Respiratory Rate 16 10/31/24 13:35 Blood Pressure 132/90 10/31/24 13:35 Pulse Oximetry 100 10/31/24 13:35 Temperature 98.2 F 10/31/24 13:35 Pulse Rate 79 10/31/24 13:35 Respiratory Rate 16 10/31/24 13:35 Blood Pressure 132/90 10/31/24 13:35 Pulse Oximetry 100 10/31/24 13:35 Reviewed MDM - Extremity Injury (Lower) MDM Narrative Medical decision making narrative: X-ray negative for any fractures or acute findings. Likely a knee sprain. Patient given Benton wrap. Discussed physical exam findings. Advised supportive measures and signs/symptoms to go to the ER. Pt is appropriate for outpt treatment and f/u. Differential Diagnosis Differential diagnosis: Likely acute internal derangement of knee and other (Knee sprain, knee fracture, patella dislocation, patella fracture, knee contusion) Imaging Data Radiologist's impression: ITS Impressions Knee X-Ray 10/31/24 14:04 IMPRESSION: 1. Normal right knee radiographs. Critical Care Time Critical Care Time Critical Care Time: No Discharge Plan Discharge Clinical Impression: Acute pain of right knee Patient Disposition: Home Condition: Stable Instructions: Knee Pain (ED) Additional Instructions: The x-ray right knee is negative for any fracture or acute findings. Rest and elevate the leg; bear weight as tolerated Apply ice 15-20 minute intervals several times a day Keep it wrapped with BENTON or using the brace You may take ibuprofen 600 mg to 800 mg every 6-8 hours. Do not exceed more than 800 mg of ibuprofen per dose. Do not exceed more than 3200 mg ibuprofen in a day. You may take up to 1000 mg Tylenol every 6-8 hours. Do not exceed 1000 mg per dose, do exceed more than 4000 mg of Tylenol in a day. Follow up with your primary care provider or orthopedist as needed in 1-2 weeks especially if pain persist. Patient Language: Palestinian Follow-up/Referrals: PHYSICIAN,PROGRAM ENGAGEMENT DIRECTOR [Primary Care Provider, Internal Medicine] Leonard Barrett MD [Physician, Orthopedics] Time of Disposition: 14:17
== END 2024-10-31 14:19 | disposition home or self-care (01) ==
DX: M25.561 Pain in right knee (principal)
CPT/HCPCS: 73564; 99213; G0463

== ENCOUNTER 2024-12-11 13:08 | Emergency (ER) | payer OTHER, SELFPAY ==
--- NOTE | ~2024-12-11 | XR_ITS ---
EXAMINATION: XR chest 2V DATE: 12/11/2024 13:47 INDICATION: 3 weeks of worsening cough TECHNIQUE: PA and lateral views of the chest were obtained. COMPARISON: None FINDINGS: The lungs are clear with no focal airspace opacities, pulmonary edema, pleural effusion or pneumothorax. The cardiomediastinal silhouette is normal. Mild thoracic spondylosis with chronic appearing mild anterior wedging of a couple mid thoracic vertebral bodies. IMPRESSION: 1. No acute cardiopulmonary disease. Reviewed, dictated and finalized at location A.
[2024-12-11 13:25] VITALS: BP 132/86; PULSE 88; RESP 16; TEMP 36.4; O2SAT 98
--- NOTE | 2024-12-11 13:25 | ECG_ITS ---
Test Date: 2024-12-11 13:34:44 Measurements Intervals Willard Rate: 91 P: 61 IA: 150 QRS: 72 QRSD: 88 T: 36 QT: 343 QTc: 423 Interpretive Statements SINUS RHYTHM BASELINE ARTIFACT- I, II, AVR NORMAL ECG No previous ECG available for comparison Electronically Signed On 12-11-2024 13:57:01 CDT by Chris Chavira D.O.
--- NOTE | 2024-12-11 14:53 | ED_ITS ---
HPI - URI/Sore Throat General Chief Complaint: Upper Respiratory Infection Stated Complaint: Chest Pain/Cough Time Seen by Provider: 12/11/24 14:15 Source: patient and RN notes reviewed Mode of arrival: ambulatory Limitations: no limitations History of Present Illness HPI Narrative: 19-year-old male patient presents to the [facility] complaining of upper respiratory symptoms for approximately 4 weeks. Patient was seen 4 weeks ago at a different urgent care was diagnosed with a virus was recommended supportive care. Since then the patient reports continuing to have chest tightness, pain with coughing, congestion, sinus pressure, sore throat, and fatigue. Patient denies any body aches, chills, fevers, nausea vomiting, diarrhea, chest pain with exertion, difficulty breathing, shortness of breath, jaw pain, left arm pain, any other upper respiratory symptoms, urinary symptoms, or any other symptoms. Patient taking [id number] cold/flu medications without relief. Patient denies any significant past medical history. Related Data Allergies Allergy/AdvReac Type Severity Reaction Status Date / Time No Known Allergies Allergy Verified 12/11/24 13:34 Review of Systems Review of Systems: As per HPI All other systems reviewed are negative, except as documented in HPI. [facility] Family History Family History Mother Thyroid disorder Depression Anxiety Grandparent Lung cancer COPD (chronic obstructive pulmonary disease) Social History Social History Social History: Caffeine-occasionally Years smoked: 4 Smoking status: Never smoker Alcohol intake: current Alcohol use details: rarely Substance use: current Substance use type: marijuana Comments At the time of my signature, I reviewed and agree with the nursing past medical, surgical, social, and family history. There is no relevant family history pertinent to the patient complaint. Exam Narrative: GENERAL: This is a well-nourished, well-developed adult, in no apparent distress. They are non ill-appearing, nontoxic appearing. HEAD: normocephalic, atraumatic. EYES: Sclera clear/white. Conjunctiva normal. Vision is grossly intact. Extraocular movements intact EARS: External ears normal, auditory canals clear and without drainage, TMs normal without perforation. Hearing grossly intact. NOSE: External nose normal with no obvious nasal discharge, nasal turbinates erythematous with exudate present, no rhinorrhea. Maxillary and frontal sinus tenderness to palpation. THROAT: Mucous membranes moist, posterior pharynx edematous without erythema. Uvula midline. Postnasal drip present. NECK: Neck supple, non-tender without lymphadenopathy, masses or thyromegaly. CARDIOVASCULAR: Regular rate and rhythm without murmurs, gallops, or rubs. RESPIRATORY: Clear to auscultation. Breath sounds equal bilaterally. No wheezes, rales, or rhonchi. SKIN: warm, Dry, intact with no suspicious lesions or rash, good texture and turgor. NEURO: awake, alert, and oriented to person, place and time. There were no obvious focal neurologic abnormalities. EXTREMITIES: No joint tenderness, effusion, or edema noted. Course Course Emergency Course: Portions of this record may have been created with voice recognition software Level of Care: Express Care Visit Vital Signs Vital signs: Vital Signs Oxygen Delivery Room Air 12/11/24 13:15 Temperature 97.6 F 12/11/24 13:25 Pulse Rate 88 12/11/24 13:25 Respiratory Rate 16 12/11/24 13:25 Blood Pressure 132/86 12/11/24 13:25 Pulse Oximetry 98 12/11/24 13:25 Oxygen Delivery Room Air 12/11/24 13:15 Reviewed MDM - URI/Sore Throat MDM Narrative Medical decision making narrative: EKG is a sinus rhythm without any ischemic findings. EKG is reassuring. [place] heart score of 0, low suspicion for CAD or ACS. Symptoms likely related to an upper respiratory infection. Will obtain chest x-ray given patient's length of symptoms. Chest x-ray reveals no acute cardiopulmonary findings. No Evidence of pneumonia. Lung sounds are clear to auscultation. Patient is nontoxic appearing, no apparent distress vital signs hemodynamically stable, tachycardia. Patient likely has a bacterial sinusitis. Will treat with Augmentin. Discussed physical exam findings. Advised supportive measures and signs/symptoms to go to the ER. Pt is appropriate for outpt treatment and f/u. Differential Diagnosis Differential diagnosis: Likely upper respiratory infection, otitis media, sinusitis, viral infection, bronchitis, pharyngitis and other (Pneumonia, acute coronary syndrome, pericarditis, pneumothorax) Imaging Data Radiologist's impression: ITS Impressions Chest X-Ray 12/11/24 13:48 IMPRESSION: 1. No acute cardiopulmonary disease. ECG Data EKG #1: Attestation: I personally reviewed and interpreted this ECG as follows: ECG completion date: 12/11/24 ECG completion time: 13:34 Prior ECG tracings: not available for review EKG Interpretation: normal rate, sinus rhythm, no ectopy, no ST changes, normal QRS, normal QT and NL axis Critical Care Time Critical Care Time Critical Care Time: No Discharge Plan Discharge Clinical Impression: Sinusitis Qualifiers: Sinusitis location: unspecified location Chronicity: acute Recurrence: non- recurrent Qualified Code(s): J01.90 - Acute sinusitis, unspecified Patient Disposition: Home Condition: Stable Instructions: Antibiotic Form, Sinusitis (ED) Additional Instructions: Her chest x-ray is negative for any acute cardiopulmonary findings. Your EKG is in normal sinus rhythm today. Is likely have a sinus infection. Take the antibiotics as directed and complete the course even if you start to feel better. You may use a Neti pot saline rinse 3 times a day with lukewarm distilled water Continue to take Tylenol or Motrin for as needed for fever or pain. Follow instructions on the bottle. Use a humidifier or vaporizer at night. Drink plenty of water. 8-10 glasses per day. Use flonase 2 times per day for 5 days then as needed Take mucinex 2 times per day and be sure to take with 8oz of water. Follow up with Primary provider in 3-5 days Please go to the ER if he develops any difficulty breathing, chest pains, nausea, vomiting, fevers, worsening symptoms, or any other concerns Patient Language: Bangladeshi Prescriptions: New amoxicillin-pot clavulanate 875-125 mg tablet 1 tablet PO Q12H 7 Days Qty: 14 0RF Follow-up/Referrals: PHYSICIAN,[facility] [employer]INE[facility] [Primary Care Provider, Internal Medicine] Time of Disposition: 14:28
== END 2024-12-11 14:40 | disposition home or self-care (01) ==
DX: J01.90 Acute sinusitis, unspecified (principal)
CPT/HCPCS: 71046; 93005; 99213; G0463